=== PATIENT | female | born 1975 | race African-American/Black ===

== ENCOUNTER 2017-08-27 15:55 | Emergency (ER) | payer MEDICARE ==
[~2017-08-27] VITALS: Ht 167.6 cm; Wt 83.3 kg
[2017-08-27 16:40] VITALS: BP 127/78
[2017-08-27] MEDS ORDERED: IBUPROFEN 200 MG TABLET ONE (17:19)
[2017-08-27] MEDS ORDERED: IBUPROFEN 200 MG TABLET PO ONE (17:30)
== END 2017-08-27 18:11 | disposition home or self-care (01) ==
LOC: ED 18:05
DX: S93.622A Sprain of tarsometatarsal ligament of left foot, initial encounter (principal); X50.1XXA Overexertion from prolonged static or awkward postures, initial encounter; Y93.01 Activity, walking, marching and hiking; Y99.8 Other external cause status; Y92.828 Other wilderness area as the place of occurrence of the external cause
CPT/HCPCS: 99284